=== PATIENT | male | born 1980 | race Caucasian/White ===

== ENCOUNTER 2018-12-03 07:55 | Inpatient (IN) ==
[2018-12-03] MEDS ORDERED: LR 500 ML ONE (08:30)
[2018-12-03] MEDS ORDERED: PEPCID ONE (08:30)
[2018-12-03] MEDS ORDERED: REGLAN ONE (08:30)
--- NOTE | 2018-12-03 08:44 | EKG Report ---
Test Performed on : 12/03/2018 08:14:32 AM Test Reason : Preop Blood Pressure : / mmHG Vent. Rate : 058 BPM Atrial Rate : 058 BPM P-R Int : 164 ms QRS Dur : 100 ms QT Int : 418 ms P-R-T Axes : 047 069 037 degrees QTc Int : 410 ms Sinus bradycardia. Otherwise normal ECG No previous ECGs available Confirmed by Eliot Saleem MD ([id number]) on 12/04/2018 11:05:46 PM
[2018-12-03] MEDS ORDERED: VANCOMYCIN 1 GM/NS 1 GM/250 ML IVPB IV ONE (09:00)
[2018-12-03] MEDS ORDERED: VALIUM ONE (10:00)
[2018-12-03] MEDS ORDERED: PRECEDEX ONE ×2 (10:22→10:25)
[2018-12-03] MEDS ORDERED: DIPRIVAN 1% ONE (10:37)
[2018-12-03] MEDS ORDERED: QUELICIN (DOSE) ONE (10:38)
[2018-12-03] MEDS ORDERED: XYLOCAINE-MPF 2% ONE (10:38)
[2018-12-03] MEDS ORDERED: KETAMINE ONE (11:07)
[2018-12-03] MEDS ORDERED: DECADRON ONE (12:47)
[2018-12-03] MEDS ORDERED: ZOFRAN ONE (12:47)
[2018-12-03] MEDS ORDERED: FENTANYL ONE (13:00)
[2018-12-03] MEDS ORDERED: NS 1,000 ML ONE (13:45)
--- NOTE | 2018-12-03 14:04 | OPERATIVE NOTE ---
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 POSTOPERATIVE DIAGNOSIS: Right proximal tibia infected hardware with osteomyelitis of the proximal tibia. PROCEDURE PERFORMED: Removal of infected hardware, and irrigation and debridement of the proximal tibia. ANESTHESIA: General. SURGEON: Mendel Sandhu MD. DIRECTOR OF SPORTS PERFORMANCE: TAMMY Melchor. COMPLICATIONS: None. BLOOD LOSS: Minimal. TOURNIQUET TIME: Approximately an hour and a half. DESCRIPTION OF PROCEDURE: The patient was brought to the operative suite and placed in the supine position. After successful administration of general anesthesia, a well-padded tourniquet was placed on right proximal thigh. The right lower extremity was prepped and draped in the usual sterile fashion. Using the previous lateral incisions, dissected sharply through the skin and down to the plate. All the screws from the plate were removed. The plate was removed. Any necrotic tissue was removed. There was purulent material. Cultures were obtained. There were 2 other screws from medial to lateral and 1 from anterior to posterior that were removed through the lateral incision as well. There was 1 anterior to posterior screw that was removed through a separate incision anteriorly. It was done by my dissecting sharply down to the screw, osteotoming around the screw head, and then removing the screw with a screwdriver. Then, through the medial incisions, dissected sharply down to the medial plate. The 2 screws were removed. The medial plate was removed. There was still a metallic suture anchor present. This was removed using the screw removal set. Once we had removed all the hardware, all 3 incisions were copiously irrigated with normal saline containing irrigant and Vashe irrigation. Then drains were placed in the medial and lateral incisions. Then the incisions were closed with interrupted 2-0 Vicryl. A sterile dressing was applied and a well-padded compression dressing was applied. The patient tolerated the procedure without complications. At the end of the procedure, all counts were correct. The patient was transferred to the recovery room in stable condition. cc: Mendel Sandhu MD
[2018-12-03] MEDS: DILAUDID ONE ×3 (14:27→14:41)
[2018-12-03] MEDS ORDERED: MORPHINE IV PRN (14:39)
[2018-12-03] MEDS ORDERED: PERCOCET-5 ONE (14:55)
[2018-12-03] MEDS ORDERED: VANCOMYCIN IV PER PHARMACY MISC SCH (17:00)
[2018-12-03 17:01] LABS: EOS# 0.02 X1000 (0.0-0.7); EOS% 0.3 % (0.0-10.0); HEMATOCRIT 39.4 % (42.0-52.0); HEMOGLOBIN 12.5 g/dL (14.0-18.0); LYMPH# 0.82 X1000 (1.2-3.4); LYMPH% 12.9 % (20.5-51.1); MCH 29.1 PG (27-31); MCHC 31.7 g/dL (33-37); MCV 91.6 FL (81-99); MONO# 0.11 X1000 (0.11-0.59); MONO% 1.7 % (1.7-9.3); MPV 10.6 FL (7.4-10.4); NEUT# 5.42 X1000 (1.4-6.5); NEUT% 85.1 % (42.2-75.2); PLT 188 X1000 (130-400); RDW 12.7 % (11.5-14.5); WBC 6.37 X1000 (4.8-10.8)
[2018-12-03 17:10] LABS: BANDS 2 % (0-1); LYMPHS 10 % (21-51); MONO 2 % (1-9); SEGS 85 % (42-75)
[2018-12-03 17:32] LABS: AGAP 9; BUN 11 mg/dL (8-22); CALCIUM 9.1 mg/dL (8.8-10.2); CHLORIDE 104 mmol/L (98-107); COSMO 270; CREATININE 0.9 mg/dL (0.7-1.2); ESTIMATED GFR > 60; GLUCOSE 147 mg/dL (70-104); POTASSIUM 5.3 mmol/L (3.5-5.1); SODIUM 134 mmol/L (136-145); TCO2 21 mmol/L (25-35)
[2018-12-03] MEDS: PERCOCET-5 PO PRN ×3 (17:34→23:52)
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
[2018-12-03] MEDS: VANCOMYCIN 2 GM in NS 500 ML IV SCH (19:17)
[2018-12-03] MEDS: PERIDEX MT SCH (21:04)
[2018-12-04] MEDS: PERCOCET-5 PO PRN ×4 (03:48→20:07)
[2018-12-04] MEDS: VANCOMYCIN 2 GM in NS 500 ML IV SCH ×2 (06:28→18:06)
[2018-12-04] MEDS: PERIDEX MT SCH ×2 (10:18→20:06)
--- NOTE | 2018-12-04 13:30 | ORTHOPAEDICS PROGRESS NOTE ---
DATE: 12/04/2018 SUBJECTIVE: Iron Willard is a 38-year-old male who is postoperative day 1 for removal of hardware, right knee. He has no new complaints. OBJECTIVE: He is a well-developed, well-nourished male. He is alert, oriented, and cooperative with exam. His culture has not come back yet. His drains have stopped draining. He has minimal output over the last 8 hours. His leg is neurovascularly intact. He walked with physical therapist. ASSESSMENT: Status post right hardware removal and irrigation and debridement. PLAN: We will remove his dressings and change his dressing today. He can likely go back to correction once his culture results are back and we know exactly which antibiotic to keep him on. cc: Mendel Sandhu MD
[2018-12-04] MEDS: MORPHINE IV PRN ×2 (16:43→22:42)
[2018-12-04] MEDS: LOPRESSOR PO SCH (20:07)
[2018-12-04] MEDS: CELEXA PO SCH (20:07)
[2018-12-04] MEDS ORDERED: LOPRESSOR PO SCH (21:00)
[2018-12-05] MEDS: LR 1,000 ML IV SCH ×2 (04:53→18:05)
[2018-12-05] MEDS: PERCOCET-5 PO PRN ×4 (05:44→21:06)
[2018-12-05] MEDS: VANCOMYCIN 2 GM in NS 500 ML IV SCH ×2 (08:44→21:02)
[2018-12-05] MEDS: PERIDEX MT SCH ×2 (08:44→21:03)
[2018-12-05] MEDS: MORPHINE IV PRN (11:43)
--- NOTE | 2018-12-05 14:28 | INFECTIOUS DISEASE PROGRESS NO ---
DATE: 12/05/2018 PRESENT ILLNESS: The patient has methicillin-resistant Staph aureus proximal tibia infected hardware and osteomyelitis. MEDICATIONS: The patient currently is getting vancomycin 2 g IV every 12 hours. This would be day 3 of treatment with vancomycin. PHYSICAL EXAMINATION: Vital Signs: Temperature is 98 degrees, pulse 57, respirations 22, blood pressure 116/49. General: This is a healthy-appearing, young male. He is in no acute distress. Head/eyes/ears/nose/throat: He can hear my spoken words and see near objects. He does not have any white patches on his tongue. Neck: No pain with movement. Lungs: Clear to auscultation. Cardiovascular: Regular heart rate. Abdomen: Soft and nontender. Bones, Joints, Muscles: The patient's dressing on the right leg is intact. There is no erythema or purulent drainage. Neurologic: The patient is alert. He can move his extremities. There is no tremor. LAB AND X-RAY: There is no new radiographic study. The creatinine is 0.9. GFR is greater than 60. CBC shows a white count of 6370, hemoglobin 12.5, and platelet count 188,000. There is no new radiographic study today. ASSESSMENT AND PLAN: The patient will have a total of 56 days of treatment with vancomycin. The patient is going to be going back to the halfway and to an area where he will be able to get his vancomycin doses. I have written down on a pink order sheet the vancomycin orders. They are vancomycin 2 g IV every 12 hours, CBC with a differential, creatinine, and a vancomycin trough level every Monday and a creatinine every . The patient also will have the pharmacy dose the doses of vancomycin and also get the copy of the lab work and also a copy of the lab work is to come to my office also. I also put that after the last dose of vancomycin, the PICC can be removed. I have finally also put for the patient to have an appointment in my office at 23 days and at 53 days from today. COMORBIDITY: The patient previously had an injury to his leg and surgery was done on it. The patient told me that it was done by a Staph germ and that vancomycin was used to treat his infection. The patient further said that the infection then spread to his tricuspid heart valve to cause endocarditis. Some of the side effects of vancomycin including rash, renal toxicity, and ototoxicity have been explained to the patient, who agreed with treatment. The patient also will be followed up in the office and treated by Dr. Irving Sandhu. cc: MD Mendel Schmitz MD [facility]
--- NOTE | 2018-12-05 14:31 | INFECTIOUS DISEASE PROGRESS NO ---
DATE: 12/05/2018 ADDENDUM: The patient will have routine PICC care to include flushing the lines and drawing the blood for the patient's lab work and also to change the dressing on the PICC every Monday. cc: MD Mendel Schmitz MD [facility]
[2018-12-05] MEDS ORDERED: NS 250 ML ONE (14:35)
[2018-12-05 15:08] LABS: INR 1.07; PROTIME 14.1 Seconds (11.0-16.0)
--- NOTE | 2018-12-05 20:54 | ORTHOPAEDICS PROGRESS NOTE ---
DATE: 12/05/2018 SUBJECTIVE: Mr. Iron Willard is postoperative day 2 from removal of hardware and irrigation and debridement of his right proximal tibia. He has no new complaints. OBJECTIVE: He is a well-developed, well-nourished male. He is alert and cooperative with exam. His wounds are clean, dry and intact. LABORATORY DATA: His cultures preliminary have no growth. ASSESSMENT: Left tibial osteomyelitis, status post hardware removal with irrigation and debridement. PLAN: We will place a PICC line today. He will likely go back to where he is incarcerated tomorrow, and receive IV antibiotics there. cc: Mendel Sandhu MD
[2018-12-05] MEDS: LOPRESSOR PO SCH (21:03)
[2018-12-05] MEDS: CELEXA PO SCH (21:03)
[2018-12-06] MEDS: VANCOMYCIN 2 GM in NS 500 ML IV SCH (07:51)
[2018-12-06] MEDS: PERCOCET-5 PO PRN ×2 (09:03→13:43)
[2018-12-06] MEDS: PERIDEX MT SCH (09:03)
[2018-12-06] MEDS: MORPHINE IV PRN ×2 (11:10→15:36)
[2018-12-06 11:28] VITALS: BP 114/46
--- NOTE | 2018-12-06 19:38 | DISCHARGE SUMMARY ---
ADMISSION DATE: 12/03/2018 DISCHARGE DATE: 12/06/2018 HISTORY OF PRESENT ILLNESS: Iron Willard is a 38-year-old male who is postop day 3 from removal of hardware, right leg. HOSPITAL COURSE: On the day of admission, he underwent hardware removal and I D of his knee. His postoperative course was unremarkable. His cultures came back negative. Therefore we are discharging him on vancomycin. He has ambulated well with physical therapy. PHYSICAL EXAMINATION: General: He is a well-developed, well-nourished male. He is alert and cooperative with exam. Skin: His wounds are clean, dry and intact without sign of infection. There is no evidence of significant drainage. LABORATORY DATA: His cultures have come back with no growth as the final. We are going to assume that he has MRSA. DISCHARGE DIAGNOSIS: Right proximal tibia osteomyelitis, status post hardware removal. PLAN: He will be discharged today back [facility]. He will be receiving IV antibiotics, vancomycin per pharmacy and Dr. Marquez. He will return to see me in 1 week for possible suture removal. cc: Mendel Sandhu MD
== END 2018-12-06 15:56 | DRG 496 ==
LOC: SURHOLD 07:55 → 4N 14:21
PROVIDERS: ADMIT Orthopaedic Surgery; ATTEND Orthopaedic Surgery